=== PATIENT | female | born 1980 | race Caucasian/White ===

== ENCOUNTER 2018-09-02 04:15 | Inpatient (IN) | payer BC ==
--- NOTE | 2018-08-27 13:56 | GHP ---
DATE OF ADMISSION: 09/02/2018 ADMITTING DIAGNOSES: 1. Intrauterine at 39 weeks. 2. Previous section, declines trial of labor. HISTORY OF PRESENT ILLNESS: The patient is a 37-year-old 2, para 1-0-0- 1 at 39 weeks with estimated due date 09/09/2018, by ultrasound done at 7 weeks. The patient presents to Labor and Delivery for a scheduled repeat C- section. The patient declines a trial of labor. The patient is denying any leakage of fluid, vaginal bleeding, or any contractions. She states there is good movement noted. The patient has good care at [facility] and presented in her 1st trimester at 10 weeks. is complicated by previous secondary to arrest of descent; she was induced secondary to preeclampsia. Baseline PIH labs were done and normal as well as a P:C ratio of 0.09. The patient was taking a baby aspirin up through 37 weeks and has had no issues with blood pressures or preeclampsia with this . is also complicated by advanced maternal age. The patient did have negative NIPT, and a level 2 ultrasound at 20 weeks was normal and did not show any invasive placentation. The patient has a history of a LEEP , and cervical length was stable. She has hypothyroidism and is stable on medication and followed by Dr. Pond. The patient developed anemia of , and is tolerating iron. She received both flu vaccine and Tdap. GBS bacteriuria noted in first trimester. PAST OB HISTORY: In 07/2016, she had a viable male infant at 38 weeks and 6 days, weighing 6 pounds 1 ounce via secondary to arrest of dilation and was induced secondary to preeclampsia. PAST ACCOUNT DIRECTOR HISTORY: Age of menarche 14. Cycles are irregular, she has only had two since delivery of her son. Positive test on 12/29/2017. The patient admits to abnormal Pap smear in 2006 that was treated with a LEEP. All subsequent Pap smears have been negative. The patient denies a history of exposure to any sexually-transmitted diseases. CURRENT MEDICATIONS: vitamins, levothyroxine 88 mcg, and iron. ALLERGIES: No known drug allergies. PAST MEDICAL HISTORY: Hypothyroidism. PAST SURGICAL HISTORY: [place] teeth, LEEP in 2006, primary in 2016. She did fracture her elbow on the playground when she was a child. FAMILY HISTORY: Mother with leukemia, diagnosed at 62 years of age. Paternal grandmother, oral cancer. Mother also with hypothyroidism and hypertension. Paternal grandfather 55 years of age secondary to a myocardial infarction. SOCIAL HISTORY: The patient is ans lives with her and their 2- year-old son, Clifford. She is an occupational therapist. Currently denies any alcohol, tobacco, or illicit drug use. REVIEW OF SYSTEMS: A 10-point review of systems is negative. Pertinent positives noted in History of Present Illness. LABS: First trimester H and H, 13.1 and 38.9, platelets 335. Blood type B positive, antibody negative. RPR nonreactive. Rubella immune. Hepatitis B surface antigen negative. HIV negative. Trio screen negative in 2016. Standard panel negative. UDS and urine culture negative. Group beta strep noted on urine culture. Pap, gonorrhea and chlamydia cultures all negative, 01/2017. Single AFP negative. Innatal screen negative. Third trimester H and H, 12.1 and 35.3. One-hour Glucola 62. Parvo and varicella immune. Baseline PIH labs normal, P:C ratio 0.09. PHYSICAL EXAMINATION: VITAL SIGNS: On admission, stable. The patient is afebrile. GENERAL: The patient is a well-nourished and well-developed female. Alert and oriented x3. No apparent distress. SKIN: Warm, dry without rash. NEURO: Grossly intact. CARDIOVASCULAR: Regular rate and rhythm. LUNGS: Clear to auscultation bilaterally. ABDOMEN: Gravid. Soft and nontender. PELVIC: Deferred. EXTREMITIES: Normal to inspection without calf tenderness or edema. ASSESSMENT/PLAN: The patient is a 37-year-old 2, para 1-0-0-1 at 39 weeks with a previous section, declines a trial of labor. 1. Admit to Labor and Delivery for repeat section. 2. Surgical consents were reviewed and on chart. 3. The patient understands all risks of the surgery and wants to proceed at this time. 4. Antibiotics post tronic machine operator to operating room. 5. Sequential compression devices for deep venous thrombosis prophylaxis. /[id number]/MODL MTDD
[2018-09-02] MEDS ORDERED: CITRIC ACID/SODIUM CITRATE 30 ML UDCUP PO ONE (04:44)
[2018-09-02] MEDS ORDERED: LR 500 ML IV ONE (04:44)
[2018-09-02] MEDS ORDERED: ceFAZolin 2 GM/DEXTROSE 100 ML IV ONE (04:44)
[2018-09-02] MEDS ORDERED: LR 1,000 ML IV SCH (04:44)
[2018-09-02 05:15] LABS: PLATELET COUNT 259 10^3/uL (150-400)
[2018-09-02] MEDS ORDERED: morphINE PF 5 MG/10 ML INJ ONE (07:18)
[2018-09-02] MEDS ORDERED: METOCLOPRAMIDE 10 MG/2 ML VIAL ONE (07:21)
[2018-09-02] MEDS ORDERED: OXYTOCIN 100 UNITS/10 ML VIAL ONE (07:21)
[2018-09-02] MEDS ORDERED: ONDANSETRON 4 MG/2 ML VIAL ONE (07:21)
[2018-09-02] MEDS ORDERED: BUPIVACAINE/DEXTROSE 7.5MG/ML 2 ML SPINAL AMP SP ONE (07:23)
[2018-09-02] MEDS ORDERED: OXYCODONE/APAP 5/325 TAB PO PRN (07:45)
[2018-09-02] MEDS ORDERED: NALOXONE HCL 0.4 MG/ML INJ IVP PRN ×2 (07:45→08:41)
[2018-09-02] MEDS ORDERED: HYDROmorphONE/DILAUDID 1 MG/ML INJ IVP PRN (07:45)
[2018-09-02] MEDS ORDERED: fentaNYL 100 MCG/2 ML INJ IVP PRN (07:45)
[2018-09-02] MEDS ORDERED: PHENYLEPHRINE HCL 100 MCG/ML SYR IVP PRN (07:45)
[2018-09-02] MEDS ORDERED: ONDANSETRON 4 MG/2 ML VIAL IVP PRN ×2 (07:45→08:41)
--- NOTE | 2018-09-02 07:45 | PREANESOB ---
Obstetric Pre-Anesthesia Info - General Info Proposed Procedure: Repeat : 2 Para: 1 MAN: 09/09/18 Gestational Age: 39 week(s) and 0 day(s) - Info Status: Full Term - Labor Status Section History: Repeat Anesthesia Allergies/Adverse Reactions: Allergy/AdvReac Type Severity Reaction Status Date / Time No Known Allergies Allergy Unverified 07/31/16 09:48 Home Medications: Medication Instructions Recorded Levothyroxine [Synthroid 25 mcg 88 mcg PO DAILY06 07/31/16 (*)] Vit27&Calcium/Iron/FA 1 each PO DAILY 07/31/16 [] Ibuprofen [Motrin (*)] 600 mg PO Q6HRS PRN #60 tab 08/05/16 Visit Medications: Generic Name Dose Route Start Last Admin Trade Name Freq PRN Reason Stop Dose Admin Lactated Ringer's 1,000 mls @ 125 mls/hr 09/02/18 04:44 09/02/18 05:45 Lr IV 09/03/18 04:43 1,000 mls CONT SALAZAR Administration Discontinued Medications Generic Name Dose Route Start Last Admin Trade Name Freq PRN Reason Stop Dose Admin Bupivacaine HCl/Dextrose Confirm 09/02/18 07:23 Marcaine Spinal Administered 09/02/18 07:24 Dose 2 ml SP .STK-MED ONE Citric Acid/Sodium Citrate 30 ml 09/02/18 04:44 09/02/18 07:23 Bicitra PO 09/02/18 04:45 30 ml ONCALL ONE Administration Cefazolin Sodium/Dextrose 100 mls @ 200 mls/hr 09/02/18 04:44 09/02/18 07:23 Ancef IV 09/02/18 05:13 100 mls ONCALL ONE Administration Protocol Lactated Ringer's 500 mls @ 0 mls/hr 09/02/18 04:44 09/02/18 05:04 Lr IV 09/02/18 04:45 500 mls ONCE ONE Administration As Directed Metoclopramide HCl Confirm 09/02/18 07:21 Reglan Injection Administered 09/02/18 07:22 Dose 10 mg .ROUTE .STK-MED ONE Morphine Sulfate Confirm 09/02/18 07:18 Morphine Pf 5 Mg/10 Ml Administered 09/02/18 07:19 Dose 5 mg .ROUTE .STK-MED ONE Ondansetron HCl Confirm 09/02/18 07:21 Zofran Administered 09/02/18 07:22 Dose 4 mg .ROUTE .STK-MED ONE Oxytocin Confirm 09/02/18 07:21 Pitocin Administered 09/02/18 07:22 Dose 100 units .ROUTE .STK-MED ONE - Vital Signs Latest Vital Signs (Nursing): Temp Pulse Resp BP Pulse Ox 36.6 C 75 18 128/88 H 96 09/02/18 06:21 09/02/18 05:47 09/02/18 05:47 09/02/18 06:21 09/02/18 05:47 Height/Weight (Nursing): Height 152.4 cm Weight 57.153 kg - Focused Exam Neck exam: FROM Mallampati Score: Class 2 Mouth exam: normal dental/mouth exam Pulmonary: clear to auscultation Cardiovascular: regular rate and rhythym Labs: 09/02/18 05:32 Patient ABO/Rh B POSITIVE 09/02/18 04:50 Uric Acid 5.7 mg/dL (2.5-6.8) 09/02/18 05:32 Total Bilirubin 0.4 mg/dL (0.1-1.4) 09/02/18 05:32 Conjugated Bilirubin 0.1 mg/dL (0.0-0.5) 09/02/18 05:32 Unconjugated Bilirubin 0.3 mg/dL (0.0-1.1) 09/02/18 05:32 AST 21 IU/L (14-46) 09/02/18 05:32 ALT 21 IU/L (9-52) 09/02/18 05:32 Lactate Dehydrogenase 382 IU/L (313-618) 09/02/18 05:32 - Plan Consent Signed and on Chart: Yes
[2018-09-02] MEDS ORDERED: fentaNYL 100 MCG/2 ML INJ ONE (08:36)
[2018-09-02] MEDS ORDERED: PHENYLEPHRINE HCL 100 MCG/ML SYR ONE (08:44)
[2018-09-02] MEDS ORDERED: MAGNESIUM HYDROXIDE 30 ML UDCUP PO PRN (09:46)
[2018-09-02] MEDS ORDERED: POLYETHYLENE GLYCOL 3350 17 GM PKT PO PRN (09:46)
[2018-09-02] MEDS ORDERED: oxyCODONE IR 5 MG TAB PO PRN (09:46)
[2018-09-02] MEDS ORDERED: LACTULOSE 20 GM/30 ML UDCUP PO PRN (09:46)
[2018-09-02] MEDS ORDERED: PROMETHAZINE HCL 25 MG/ML INJ IVP PRN (09:46)
[2018-09-02] MEDS ORDERED: BISACODYL 10 MG SUPP PR PRN (09:46)
[2018-09-02] MEDS ORDERED: DOCUSATE SODIUM 100 MG CAP PO PRN (09:46)
[2018-09-02] MEDS ORDERED: SIMETHICONE 80 MG TAB CHEW PO PRN (09:46)
--- NOTE | 2018-09-02 09:50 | OBDEL ---
Info Type: Repeat Presentation at Delivery: Breech (Joaquin breech) L&D Analgesia/Anesthesia Type: Spinal GBS+: Yes Intrapartum Medications: Generic Name Dose Route Start Last Admin Trade Name Freq PRN Reason Stop Dose Admin Lactated Ringer's 1,000 mls @ 125 mls/hr 09/02/18 04:44 09/02/18 05:45 Lr IV 09/03/18 04:43 1,000 mls CONT SALAZAR Administration Discontinued Medications Generic Name Dose Route Start Last Admin Trade Name Freq PRN Reason Stop Dose Admin Citric Acid/Sodium Citrate 30 ml 09/02/18 04:44 09/02/18 07:23 Bicitra PO 09/02/18 04:45 30 ml ONCALL ONE Administration Cefazolin Sodium/Dextrose 100 mls @ 200 mls/hr 09/02/18 04:44 09/02/18 07:23 Ancef IV 09/02/18 05:13 100 mls ONCALL ONE Administration Protocol Lactated Ringer's 500 mls @ 0 mls/hr 09/02/18 04:44 09/02/18 05:04 Lr IV 09/02/18 04:45 500 mls ONCE ONE Administration As Directed - Care Provider Bobbin Cleaning Machine Operator/GOVERNMENT CLERK: Dayanna Munoz - Hospital Course Intrapartum: 09/02/18 09:49 Previous c/s, declines trial of labor; GBS + Indications for Delivery: Elective (Previous c/s, declines trial of labor) Vaginal Delivery - Labor and Delivery Onset of Contractions Date: 09/02/18 Onset of Contractions Time: 14:30 Cord Gases: Cord Gases Cord Blood PCO2 TNP 09/02/18 08:36 Cord Base Excess TNP 09/02/18 08:36 Cord ABG pH TNP 09/02/18 08:36 Cord VBG pH 7.38 (7.20-7.42) 09/02/18 08:36 Operative Report - Delivery Pre-op Diagnoses: IUP @ 39 weeks with previous c/s, declines trial of labor Post-op Diagnoses: IUP @ 39 weeks with previous c/s, declines trial of labor History of Prior Section: Yes Number of Prior Sections: 1 Indications for Prior Section: Arrest of Dilation Indications for Current Section: Elective/Repeat Procedure: Scheduled Surgeon: Gina Ballard Hand Slitter: Lashaun Cash Anesthesiologist: Cezar Perera Complications: None Findings: A viable male in joaquin breech presentation born at 0835 with 7 and 8 Apgars weighing 2752 grams (6# 1oz). Delayed cord clamping x 60 seconds. to [facility]. Cord gases and cord bloods obtained. Placenta delivered spontaneously intact with 3 -vc. Grossly normal appearing uterus, tubes and ovaries. No complications. Specimen(s)/Path: Other (Specify) (none) IV Fluid (ml): 1,700 EBL: 800cc UO: 100 cc clear urine Cord Gases: Cord Gases Cord Blood PCO2 TNP 09/02/18 08:36 Cord Base Excess TNP 09/02/18 08:36 Cord ABG pH TNP 09/02/18 08:36 Cord VBG pH 7.38 (7.20-7.42) 09/02/18 08:36 [place] Data MAN: 09/09/18 Gestational Age: 39 week(s) and 0 day(s) [place] Delivery Date: 09/02/18 Delivery Time: 08:35 Sex of Infant: Male [place] Weight (gm): 2752 g Score (1 Min): 7 Score (5 Min): 8 ICD10 Worksheet Patient Problems: Problems Problem Status Onset Status post repeat low transverse section Acute
--- NOTE | 2018-09-02 10:35 | POSTANESTH ---
Post Anesthetic Evaluation Cardiovascular Status: Normal, Stable Respiratory Status: Normal, Stable Level of Consciousness/Mental Status: Can Participate in Eval, Alert and Oriented Pain Control: Adequate, Prn Tx Ordered Nausea/Vomiting Control: Adequate, Prn Tx Ordered Complications Possibly Related to Anesthesia: None Noted
[2018-09-02] MEDS ORDERED: KETOROLAC 30 MG/1 ML SDV ONE (10:36)
[2018-09-02] MEDS: KETOROLAC 30 MG/1 ML SDV IVP SCH ×3 (10:40→22:32)
--- NOTE | 2018-09-02 11:24 | GOP ---
DATE OF OPERATION: 09/02/2018 SURGEON: Gina Ballard DO LATHE SPOTTER: POLLO Flaherty and Tamanna Dueñas, Certified Nurse Roll Repairer. ANESTHESIA: Spinal. ANESTHESIOLOGIST: Cezar Perera DO. PREOPERATIVE DIAGNOSIS: Intrauterine at 39 weeks' gestation with previous section, declines a trial of labor. POSTOPERATIVE DIAGNOSIS: Intrauterine at 39 weeks' gestation with previous section, declines a trial of labor; joaquin breech presentation. PROCEDURE PERFORMED: Repeat low transverse section. FINDINGS: A viable male in joaquin breech presentation, born at 0835 with 7 and 8 Apgars, weighing 2752 g. Delayed cord clamping x60 seconds. Cord gases and bloods were obtained. Placenta delivered spontaneously intact with 3- vessel cord. Grossly normal-appearing uterus, tubes, and ovaries bilaterally. ESTIMATED BLOOD LOSS: 800 cc. INDICATIONS: The patient is a 37-year-old 2, para 1-0-0-1 at 39 weeks' gestation with a previous for which she was induced secondary to preeclampsia and had arrest of dilation. The patient declines a trial of labor at this time and desires a repeat . Discussed risks, benefits, and alternatives of the procedure including but not limited to, bleeding, infection , and damage to surrounding organs. The patient understands all risks of the procedure and wants to proceed at this time. The patient was properly consented. DESCRIPTION OF PROCEDURE: Patient was taken to the operating room where spinal anesthesia was given without difficulty. The patient was prepped and draped in dorsal supine position with a leftward tilt. Clifton catheter was placed in her bladder. After adequate anesthesia was assured and at WHO time-out was performed, a Pfannenstiel skin incision was made with a scalpel through the old scar. Incision was carried down through the underlying layer of fascia using the Bovie. Fascia was then incised in the midline. Fascial incision was extended laterally with Gary scissors. The superior aspect of fascia was then grasped with Odell clamps, elevated, and rectus muscles dissected off sharply. Inferior aspect of fascial incision was grasped with Odell clamps, elevated, and rectus muscles were dissected off sharply. Rectus muscles were then in midline. Peritoneum was identified and entered bluntly. Peritoneum was then extended superiorly and inferiorly with good visualization of the bladder. The vesicouterine peritoneum was identified and a bladder flap was not created at this time secondary to a thin lower uterine segment noted. The uterus was then incised with a knife in a transverse fashion and right away we entered amniotic sac and noted clear fluid. The incision was then extended superiorly and inferiorly manually. The was noted to be in joaquin breech presentation. Baby was then delivered using standard breech extraction maneuvers. There was some difficulty with delivery of the head secondary to anti-flexion. Baby boy was finally delivered and nose and mouth were bulb suctioned. We delayed cord clamping for 1 minute. The cord was then clamped x2 and cut. Infant was then handed over to [facility]. Cord gases as well as cord bloods were obtained and sent. The placenta was then delivered spontaneously intact with 3-vessel cord. The uterus was exteriorized and cleared of all clots and debris. Uterine incision was then closed in 2 layers. 1st layer was 0 Vicryl in a running locked fashion. Second layer was imbricating layer of suture performed with 0 Vicryl. Hemostasis was noted. The uterus was then returned to the abdomen. The gutters were cleared of all clots and debris. Reinspection of the uterine incision noted some bleeding, so at this time, 2 [id number] stitches were used using O-Vicryl. Hemostasis was achieved and Micah was placed on the uterine incision for further hemostasis. The fascia was then closed with 0 Vicryl in a running fashion. Hemostasis was noted. Subcutaneous layer was then closed with 2-0 Vicryl. Skin was then closed with 4-0 Vicryl on a Shawn needle. Patient tolerated the procedure well. No complications. Sponge, lap, needle, and instrument counts correct x2. The patient was then taken to recovery room in stable condition. IV FLUIDS: 1700 cc LR. URINE OUTPUT: 100 cc of clear urine at the end of the procedure. /[id number]/MODL MTDD
[2018-09-02] MEDS: IBUPROFEN 600 MG TAB PO SCH ×2 (16:39→18:28)
[2018-09-02] MEDS: ACETAMINOPHEN 325 MG TAB PO SCH ×3 (16:40→22:34)
--- NOTE | 2018-09-02 17:22 | OBPP ---
Progress Note Assessment/Plan: Assessment: 1) s/p RCS POD # 0 - pt is stable 2) Hypothyroidism - stable on meds Plan: Continue routine post-op care Will cont to monitor incisional bleeding; dressing marked with pen and will follow shadowing Encourage IS Cont Toradol as ordered and start po meds when tomer po UO is good, cont to monitor BPs stable HCT in am 09/0309/02/18 17:24 Subjective/ Course: 09/02/18 17:20 Pt seen and examined. Doing well, with no complaints. Pain is controlled with Toradol. Not OOB yet, tomer clears, washington in place, no flatus yet. Denies any f/c/ n/v/CP or SOB. She is trying to get baby boy to latch. Objective: 09/02/18 05:45 09/02/18 05:32 Patient ABO/Rh B POSITIVE 09/02/18 04:50 Uric Acid 5.7 mg/dL (2.5-6.8) 09/02/18 05:32 Total Bilirubin 0.4 mg/dL (0.1-1.4) 09/02/18 05:32 Conjugated Bilirubin 0.1 mg/dL (0.0-0.5) 09/02/18 05:32 Unconjugated Bilirubin 0.3 mg/dL (0.0-1.1) 09/02/18 05:32 AST 21 IU/L (14-46) 09/02/18 05:32 ALT 21 IU/L (9-52) 09/02/18 05:32 Lactate Dehydrogenase 382 IU/L (313-618) 09/02/18 05:32 Temp Pulse Resp BP Pulse Ox 36.4 C 62 16 119/80 91 L 09/02/18 13:00 09/02/18 13:00 09/02/18 13:00 09/02/18 13:00 09/02/18 13:00 Uterine Position/Fundal Height: Umbilicus -1 Uterine Tone: Firm Physical Exam - Physical Exam General Appearance: WD/WN, alert, no apparent distress Respiratory: lungs clear, normal breath sounds Cardiac/Chest: regular rate, rhythm Abdomen: hypoactive bowel sounds, non-tender (appropriate tenderness), incision (Clean and intact; initial dressing was saturated with blood), dressing ( Replaced; no shadowing at this time) Extremities: non-tender, normal inspection Skin: normal color, warm/dry Neuro/Psych: alert, normal mood/affect, oriented x 3
[2018-09-03] MEDS: IBUPROFEN 600 MG TAB PO SCH ×5 (00:15→23:47)
[2018-09-03] MEDS: SENNOSIDES/DOCUSATE SODIUM TAB PO SCH ×2 (00:16→16:59)
[2018-09-03] MEDS: KETOROLAC 30 MG/1 ML SDV IVP SCH (05:30)
[2018-09-03] MEDS: ACETAMINOPHEN 325 MG TAB PO SCH ×3 (05:30→18:41)
[2018-09-03] MEDS: LEVOTHYROXINE 88 MCG TAB PO SCH (06:35)
--- NOTE | 2018-09-03 09:32 | PDPAINCON ---
Pain Management Consultation - Subjective Pain is: low, well controlled Side effects include: No drowsy, No itchiness, No nausea Activity: able to ambulate - Objective Technique: spinal opioid Sensory and motor exam: block has resolved, no apparent ill effects Vital signs: stable - Assessment/Plan Assessment/Plan: pain well-controlled, continue current mgmt Additional comments: POD 1 s/p C/S with SAB and ITN. Denies ill effects of spinal. Able to ambulate, tolerating PO. Denies HAGAN, N/V, back pain. Overall happy with experience.
--- NOTE | 2018-09-03 10:25 | OBPP ---
Progress Note Assessment/Plan: Assessment: POD1 s/p scheduled RCS - doing well no acute issues. Routine cares, likely home tomorrow. Anemia - Iron supps. Rh pos, Rubella immune. JM Subjective/ Course: Doing well today, bandage still on but otherwise fully advanced. Pain well controlled. Objective: 09/03/18 08:40 09/02/18 05:32 Patient ABO/Rh B POSITIVE 09/02/18 04:50 Uric Acid 5.7 mg/dL (2.5-6.8) 09/02/18 05:32 Total Bilirubin 0.4 mg/dL (0.1-1.4) 09/02/18 05:32 Conjugated Bilirubin 0.1 mg/dL (0.0-0.5) 09/02/18 05:32 Unconjugated Bilirubin 0.3 mg/dL (0.0-1.1) 09/02/18 05:32 AST 21 IU/L (14-46) 09/02/18 05:32 ALT 21 IU/L (9-52) 09/02/18 05:32 Lactate Dehydrogenase 382 IU/L (313-618) 09/02/18 05:32 Temp Pulse Resp BP Pulse Ox 36.2 C 69 16 104/71 97 09/03/18 07:29 09/03/18 07:29 09/03/18 07:29 09/03/18 07:29 09/03/18 07:29 Uterine Position/Fundal Height: At Umbilicus Uterine Tone: Firm Physical Exam - Physical Exam Abdomen: incision (Bandaged, no shadowing)
[2018-09-04] MEDS: SENNOSIDES/DOCUSATE SODIUM TAB PO SCH ×2 (00:04→14:50)
[2018-09-04] MEDS: ACETAMINOPHEN 325 MG TAB PO SCH ×2 (00:04→10:34)
[2018-09-04] MEDS: LEVOTHYROXINE 88 MCG TAB PO SCH (06:03)
[2018-09-04] MEDS: IBUPROFEN 600 MG TAB PO SCH ×2 (06:03→14:51)
[2018-09-04 07:46] VITALS: BP 113/73
--- NOTE | 2018-09-04 10:34 | OBPP ---
Progress Note Assessment/Plan: Assessment: POD 2 s/p RCS for breech mild anemia Plan: D/C home per pt's request 09/04/18 10:31 Subjective/ Course: 09/02/18 17:20 Pt seen and examined. Doing well, with no complaints. Pain is controlled with Toradol. Not OOB yet, tomer clears, washington in place, no flatus yet. Denies any f/c/ n/v/CP or SOB. She is trying to get baby boy to latch. 09/04/18 10:32 Pt doing great. really managing pain well with just ibu/tyl. very different from last time. urinating fine. bld is light. small BM. working on pumping and latching with SNS - getting colostrum. Objective: 09/03/18 08:40 09/02/18 05:32 Patient ABO/Rh B POSITIVE 09/02/18 04:50 Uric Acid 5.7 mg/dL (2.5-6.8) 09/02/18 05:32 Total Bilirubin 0.4 mg/dL (0.1-1.4) 09/02/18 05:32 Conjugated Bilirubin 0.1 mg/dL (0.0-0.5) 09/02/18 05:32 Unconjugated Bilirubin 0.3 mg/dL (0.0-1.1) 09/02/18 05:32 AST 21 IU/L (14-46) 09/02/18 05:32 ALT 21 IU/L (9-52) 09/02/18 05:32 Lactate Dehydrogenase 382 IU/L (313-618) 09/02/18 05:32 Temp Pulse Resp BP Pulse Ox 36.7 C 63 16 113/73 95 09/04/18 07:45 09/04/18 07:45 09/04/18 07:45 09/04/18 07:45 09/04/18 07:45 Uterine Position/Fundal Height: Umbilicus -2 Uterine Tone: Firm Physical Exam - Physical Exam Abdomen: non-tender (approp post op tenderness, ), soft, incision (CDI), other ( FF at umb -2, normal lochia) Extremities: non-tender, pedal edema (minimal) Skin: normal color, warm/dry Neuro/Psych: no motor/sensory deficits, alert, normal mood/affect
--- NOTE | 2018-09-04 10:39 | OBGCSDC ---
General Delivery Information - General Info : 2 Para: 2 Abortions: 0 Type: Repeat L&D Analgesia/Anesthesia Type: Spinal Admission Date: 09/02/18 Labs: Patient ABO/Rh B POSITIVE 09/02/18 04:50 Hct 35.1 % (38.0-47.0) L 09/03/18 08:40 - Hospital Course Intrapartum: 09/02/18 09:49 Previous c/s, declines trial of labor; GBS + : 09/02/18 17:20 Pt seen and examined. Doing well, with no complaints. Pain is controlled with Toradol. Not OOB yet, tomer clears, washington in place, no flatus yet. Denies any f/c/ n/v/CP or SOB. She is trying to get baby boy to latch. 09/04/18 10:32 Pt doing great. really managing pain well with just ibu/tyl. very different from last time. urinating fine. bld is light. small BM. working on pumping and latching with SNS - getting colostrum. - Delivery Providers Surgeon: Gina Ballard Associate Director Regulatory Affairs: Lashaun Cash Anesthesiologist: Cezar Perera - Delivery Number of Prior Sections: 1 Indications for Current Section: Elective/Repeat Surgical Procedures: Scheduled Intra-op Complications: None EBL: 800cc UO: 100 cc clear urine Data MAN: 09/09/18 Gestational Age: 39 week(s) and 2 day(s) [place] Delivery Date: 09/02/18 Delivery Time: 08:35 Sex of Infant: Male [place] Weight (gm): 2752 g Score (1 Min): 7 Score (5 Min): 8 Discharge Information - Discharge Information Condition: Good Instruction/Follow Up: See Instruction Sheet, Two Weeks, Four Weeks (3-4 wks with therapist), Six Weeks
== END 2018-09-04 12:00 | disposition home or self-care (01) | DRG 788 ==
LOC: FLD 04:15 → FOB 11:35
PROVIDERS: ADMIT Hospitalist; ATTEND Obstetrics & Gynecology
PROC: 10D00Z1 Extraction of Products of Conception, Low, Open Approach (ICD-10-PCS; principal; 2018-09-02)
DX: O34.211 Maternal care for low transverse scar from previous cesarean delivery (principal); O32.1XX0 Maternal care for breech presentation, not applicable or unspecified; Z37.0 Single live birth; Z3A.39 39 weeks gestation of pregnancy
CPT/HCPCS: J0690; J1885; J2274; J2370; J2405; J2590; J2765; J3010